=== PATIENT | female | born 1970 | race Caucasian/White ===

== ENCOUNTER 2018-08-21 11:38 | Emergency (ER) | payer MEDICAID ==
[~2018-08-21] VITALS: Ht 165.1 cm; Wt 62.0 kg
[2018-08-21 11:53] VITALS: Ht 165.1 cm; Wt 62.0 kg
--- NOTE | 2018-08-21 12:58 | ERD ---
ER Documentation Chief Complaint Chief Complaint CP WITH RADIATING PAIN TO THE UPPER BACK X 1 MONTH HPI 47-year-old female presenting with left upper back pain for the past 1 month that has been intermittent, aching, worse with turning her head to the left. She occasionally feels associated discomfort in her chest. She states that it feels like her heart is "stopping". She denies any associated shortness of breath, fever, chills, nausea, vomiting. 1 month ago she did have a URI and was coughing a lot, but she denies any coughing now. No hemoptysis. No history of blood clots. No recent immobilization, surgeries, or control use.she has been using Advil for the pain with improvement for a short period. 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 ROS All systems reviewed and are negative except as per history of present illness. Allergies Allergies: Coded Allergies: No Known Allergy (Unverified , 08/21/18) PMhx/Soc Medical and Surgical Hx: pt denies Medical Hx, pt denies Surgical Hx Hx Alcohol Use: No Hx Substance Use: No Hx Tobacco Use: No Smoking Status: Never smoker FmHx Family History: No diabetes, No coronary disease Physical Exam Vitals Vital Signs Date Temp Pulse Resp B/P (MAP) Pulse Ox O2 O2 Flow FiO2 Time Delivery Rate 08/21/18 98.1 67 16 126/78 100 Room Air 13:16 (94) 08/21/18 75 16 121/89 100 Room Air 12:45 (100) 08/21/18 97.3 82 20 124/69 100 11:53 (87) Physical Exam Const: No acute distress Head: Atraumatic Eyes: Normal Conjunctiva ENT: Normal External Ears, Nose and Mouth. Neck: Full range of motion. No meningismus. Resp: Clear to auscultation bilaterally Cardio: Regular rate and rhythm, no murmurs. 2+ distal pulses Abd: Soft, non tender, non distended. Normal bowel sounds Skin: No petechiae or rashes Back: No midline or flank tenderness. Muscular tenderness around the left inferior aspect of the scapula that reproduces pain. Ext: No cyanosis, or edema Neur: Awake and alert Psych: Normal Mood and Affect Results 24 hrs Laboratory Tests Test 08/21/18 12:46 POC Beta HCG, Qualitative NEGATIVE Current Medications Medications Dose Sig/Vidal Start Time Status Last (Trade) Ordered Route PRN Stop Time Admin Dose Reason Admin Naproxen 500 mg ONCE ONCE 08/21/18 DC 08/21/18 (Naprosyn) PO 13:00 12:58 08/21/18 13:01 Procedures/MDM EMERGENT LABS AND DIAGNOSTIC STUDIES: Lab Results above were reviewed and interpreted by me. Urine negative 12-lead EKG was interpreted by Sergio Hodgson MD: Normal Sinus Rhythm Normal axis Normal intervals No acute ST or T wave changes suggestive of acute ischemia or STEMI. Radiology Results as interpreted by Radiology below were reviewed by Anson Hodgson MD: Chest x-ray: No acute abnormalities Initial Nursing notes reviewed. Previous Medical Records requested via the Electronic Health Record. EMERGENCY DEPARTMENT COURSE / MEDICAL DECISION MAKING: Patient is presenting with left upper back pain. She has point muscular tenderness on exam. Vitals are stable and she is afebrile. Chest x-ray showed no acute abnormalities. I do not suspect acute coronary syndrome, aortic dissection, pulmonary embolism. There is no evidence of pneumothorax or pneumomediastinum. I feel the patient's pain is muscular in nature. She also is not getting much sleep, so she may be suffering from some palpitations secondary to stress. I recommended follow-up with her primary care doctor for possible Holter monitoring. However at this point, she is stable for discharge without further workup. Patient's blood pressure was elevated (>120/80) but appears stable without evidence of hypertensive emergency or urgency. The patient was counseled about the risks of hypertension and urged to pursue outpatient monitoring and therapy within a week with their primary care physician. Departure Diagnosis: Primary Impression: Back pain Back pain location: thoracic back pain Chronicity: acute Back pain laterality: left Qualified Codes: M54.6 - Pain in thoracic spine Condition: Stable Patient Instructions: Muscle Spasm, Back Pain (Acute Or Chronic) LEONOR HODGSON MD Aug 21, 2018 12:58
[2018-08-21] MEDS ORDERED: NAPROXEN 500 MG TAB PO ONE (13:00)
[2018-08-21 13:16] VITALS: BP 126/78; PULSE 67; RESP 16
== END 2018-08-21 13:17 | disposition home or self-care (01) ==
LOC: E/R 11:38
DX: M54.6 Pain in thoracic spine (principal)
CPT/HCPCS: 71045; 81025; 93005; Z7502; Z7610